=== PATIENT | male | born 1960 | race American Indian/Alaskan Native ===

== ENCOUNTER 2016-12-26 09:18 | Emergency (ER) | payer SELFPAY ==
[2016-12-26 09:36] VITALS: BP 119/87
--- NOTE | 2016-12-26 11:22 | Emergency Department Report ---
- General Chief Complaint: Upper Respiratory Infection Stated Complaint: FLU SYMPTOMS Time Seen by Provider: 12/26/16 10:58 Source: patient Mode of arrival: Ambulatory Limitations: No Limitations - History of Present Illness Initial Comments: Patient complains of head and chest congestion, nonproductive cough, stuffy and runny nose, headaches x 2.5 days. States it began with a lot of drainage in the back of his throat and the cough started last night which caused him to choke and feel short of breath. Denies nausea, vomiting, fever, spitting or coughing up blood, chest pain, weakness, tingling, or numbness. States no relief with OTC meds. Patient states feels like symptom is worse in within the last 12 hour - Related Data Previous Rx's Medication Instructions Recorded Last Taken Type Amoxicillin [Trimox CAP] 500 mg PO Q8H #21 capsule 10/29/13 Unknown Rx Ibuprofen [Motrin] 800 mg PO TID PRN #14 tablet 10/29/13 Unknown Rx Prednisone 20 mg PO QDAY #5 tablet 10/29/13 Unknown Rx HYDROcodone/APAP 5-325 [[place] 1 each PO Q6HR PRN #20 tablet 04/20/14 Unknown Rx 5/325 mg] Azithromycin [Zithromax Z-MARILYNN] 250 mg PO DAILY #6 tablet 05/23/14 Unknown Rx Naproxen [Naprosyn] 500 mg PO Q12H #60 tablet 05/23/14 Unknown Rx Promethazine Dm [Phenergan DM 5 ml PO Q6H PRN #120 ml 05/23/14 Unknown Rx 6.25-15 mg/5 ml] traMADol [Ultram 50 MG tab] 50 mg PO Q6HR PRN #20 tablet 05/23/14 Unknown Rx Cyclobenzaprine [Flexeril 10 MG 10 mg PO TID PRN #30 tablet 08/24/15 Unknown Rx TAB] Ibuprofen [Motrin] 800 mg PO Q8HR #40 tablet 08/24/15 Unknown Rx traMADol [Ultram 50 MG tab] 50 mg PO Q6HR PRN #30 tablet 08/24/15 Unknown Rx ALBUTEROL Inhaler [ProAir HFA 1 puff IH Q4H PRN #1 inha 12/26/16 Unknown Rx Inhaler] Amoxicillin/K Clav Tab [Augmentin 1 tab PO Q12HR #14 tab 12/26/16 Unknown Rx 875 mg] Fluticasone [Flonase] 1 spray NS QDAY #1 bottle 12/26/16 Unknown Rx Loratadine/Pseudoephedrine 1 tab PO Q12H #30 tablet 12/26/16 Unknown Rx [Claritin-D 12HR] Allergies Allergy/AdvReac Type Severity Reaction Status Date / Time No Known Allergies Allergy Verified 04/20/14 17:33 ED Review of Systems ROS: Stated complaint: FLU SYMPTOMS Other details as noted in HPI Comment: All other systems reviewed and negative ED Past Medical Hx - Past Medical History Additional medical history: high cholesterol - Surgical History Past Surgical History?: No - Social History Smoking Status: Current Every Day Smoker Substance Use Type: Alcohol - Medications Home Medications: Home Medications Medication Instructions Recorded Confirmed Last Taken Type Amoxicillin [Trimox CAP] 500 mg PO Q8H #21 capsule 10/29/13 Unknown Rx Ibuprofen [Motrin] 800 mg PO TID PRN #14 tablet 10/29/13 Unknown Rx Prednisone 20 mg PO QDAY #5 tablet 10/29/13 Unknown Rx HYDROcodone/APAP 5-325 [[place] 1 each PO Q6HR PRN #20 tablet 04/20/14 Unknown Rx 5/325 mg] Azithromycin [Zithromax Z-MARILYNN] 250 mg PO DAILY #6 tablet 05/23/14 Unknown Rx Naproxen [Naprosyn] 500 mg PO Q12H #60 tablet 05/23/14 Unknown Rx Promethazine Dm [Phenergan DM 5 ml PO Q6H PRN #120 ml 05/23/14 Unknown Rx 6.25-15 mg/5 ml] traMADol [Ultram 50 MG tab] 50 mg PO Q6HR PRN #20 tablet 05/23/14 Unknown Rx Cyclobenzaprine [Flexeril 10 MG 10 mg PO TID PRN #30 tablet 08/24/15 Unknown Rx TAB] Ibuprofen [Motrin] 800 mg PO Q8HR #40 tablet 08/24/15 Unknown Rx traMADol [Ultram 50 MG tab] 50 mg PO Q6HR PRN #30 tablet 08/24/15 Unknown Rx ALBUTEROL Inhaler [ProAir HFA 1 puff IH Q4H PRN #1 inha 12/26/16 Unknown Rx Inhaler] Amoxicillin/K Clav Tab [Augmentin 1 tab PO Q12HR #14 tab 12/26/16 Unknown Rx 875 mg] Fluticasone [Flonase] 1 spray NS QDAY #1 bottle 12/26/16 Unknown Rx Loratadine/Pseudoephedrine 1 tab PO Q12H #30 tablet 12/26/16 Unknown Rx [Claritin-D 12HR] ED Physical Exam - General Limitations: No Limitations General appearance: alert, in no apparent distress - Head Head exam: Present: atraumatic, normocephalic, normal inspection, other (+ frontal sinus pain.) - Eye Eye exam: Present: normal appearance, PERRL, EOMI. Absent: scleral icterus, conjunctival injection, periorbital swelling, periorbital tenderness - ENT ENT exam: Present: normal exam, mucous membranes moist, TM's normal bilaterally , normal external ear exam. Absent: normal orophraynx (PND) - Neck Neck exam: Present: normal inspection, full ROM. Absent: tenderness, meningismus, lymphadenopathy - Respiratory Respiratory exam: Present: normal lung sounds bilaterally. Absent: respiratory distress, wheezes, rales, rhonchi, stridor, chest wall tenderness, accessory muscle use, decreased breath sounds, prolonged expiratory - Cardiovascular Cardiovascular Exam: Present: regular rate, normal rhythm - GI/Abdominal GI/Abdominal exam: Present: soft, normal bowel sounds. Absent: distended, tenderness, guarding - Extremities Exam Extremities exam: Present: normal inspection, full ROM, tenderness. Absent: normal capillary refill, pedal edema, joint swelling, calf tenderness - Back Exam Back exam: Present: normal inspection, full ROM. Absent: tenderness, CVA tenderness (R), CVA tenderness (L) - Neurological Exam Neurological exam: Present: alert, oriented X3, normal gait. Absent: motor sensory deficit, reflexes normal - Psychiatric Psychiatric exam: Present: normal affect, normal mood - Skin Skin exam: Present: warm, dry, intact, normal color. Absent: rash, cyanosis, diaphoretic, erythema, petechiae, pallor, abrasion ED Course Vital Signs 12/26/16 09:34 Temperature 98.1 F Pulse Rate 83 Respiratory 18 Rate Blood Pressure 119/87 O2 Sat by Pulse 97 Oximetry Critical care attestation.: If time is entered above; I have spent that time in minutes in the direct care of this critically ill patient, excluding procedure time. ED Disposition Clinical Impression: PND (post-nasal drip) Acute sinusitis Qualifiers: Sinusitis location: frontal Recurrence: not specified as recurrent Qualified Code(s): J01.10 - Acute frontal sinusitis, unspecified Disposition: DISCHARGED TO HOME OR SELFCARE Is pt being admited?: No Does the pt Need Aspirin: No Condition: Stable Instructions: Sinusitis (ED) Prescriptions: Amoxicillin/K Clav Tab [Augmentin 875 mg] 1 tab PO Q12HR #14 tab Loratadine/Pseudoephedrine [Claritin-D 12HR] 1 tab PO Q12H #30 tablet Fluticasone [Flonase] 1 spray NS QDAY #1 bottle ALBUTEROL Inhaler [ProAir HFA Inhaler] 1 puff IH Q4H PRN #1 inha PRN Reason: Shortness Of Breath Referrals: [facility] [Outside] - 2-3 Days PRIMARY CARE, [Primary Care Provider] - 2-3 Days Forms: Work/School Release Form(ED)
== END 2016-12-26 11:37 | disposition home or self-care (01) ==
LOC: ED 09:18
DX: J01.10 Acute frontal sinusitis, unspecified (principal); R09.82 Postnasal drip; E78.00 Pure hypercholesterolemia, unspecified; F17.200 Nicotine dependence, unspecified, uncomplicated
CPT/HCPCS: 99282

== ENCOUNTER 2017-05-08 13:47 | Emergency (ER) | payer SELFPAY ==
[2017-05-08 15:01] VITALS: BP 137/94
--- NOTE | 2017-05-08 15:39 | Emergency Department Report ---
Entered by REJI MCCRARY, acting as scribe for BRONSON GRAHAM NP. ED Lower Extremity HPI - General Chief Complaint: Skin/Abscess/Foreign Body Stated Complaint: LEFT LEG INSECT BITE Time Seen by Provider: 05/08/17 14:55 Source: patient Mode of arrival: Ambulatory Limitations: No Limitations - History of Present Illness Initial Comments: 56 y/o male c/o possible insect or animal to the left anterior thigh occurring yesterday morning, no aggravating or alleviating factors, constant since onset , burning in quality, 4/10 in severity. Associated erythema, swelling, and pain of the area but denies fever, nausea, vomiting, and chills. Patient states he was bitten while lying in bed. MD Complaint: thigh injury, leg injury (Left thigh) -: Gradual, days(s) (1) Injury: Thigh: Left Type of Injury: other (bite) Place: home Severity: moderate Severity scale (0 -10): 4 Improves With: nothing Worsens With: nothing Context: other (laying in bed) Associated Symptoms: swelling, ambulatory. denies: numbness, tingling, unable to bear weight - Related Data Previous Rx's Medication Instructions Recorded Last Taken Type ALBUTEROL Inhaler [ProAir HFA 1 puff IH Q4H PRN #1 inha 12/26/16 Unknown Rx Inhaler] Fluticasone [Flonase] 1 spray NS QDAY #1 bottle 12/26/16 Unknown Rx Loratadine/Pseudoephedrine 1 tab PO Q12H #30 tablet 12/26/16 Unknown Rx [Claritin-D 12HR] Cephalexin [Keflex] 500 mg PO Q6HR #40 capsule 05/08/17 Unknown Rx Ibuprofen [Motrin] 600 mg PO Q8H PRN #15 tablet 05/08/17 Unknown Rx Sulfamethoxazole/Trimethoprim 1 each PO BID #20 tablet 05/08/17 Unknown Rx [Bactrim DS TAB] hydrOXYzine PAMOATE [Vistaril] 25 mg PO Q6HR PRN #12 capsule 05/08/17 Unknown Rx traMADol [Ultram] 50 mg PO Q6HR PRN #12 tablet 05/08/17 Unknown Rx Allergies Allergy/AdvReac Type Severity Reaction Status Date / Time No Known Allergies Allergy Verified 05/08/17 15:01 ED Review of Systems Comment: All other systems reviewed and negative Constitutional: denies: chills, fever, malaise Eyes: denies: eye pain, eye discharge ENT: denies: ear pain, throat pain Respiratory: denies: cough, shortness of breath Cardiovascular: denies: chest pain Gastrointestinal: denies: abdominal pain, nausea, vomiting Genitourinary: denies: dysuria, hematuria Musculoskeletal: denies: back pain Skin: other (insect or animal bite to the left anterior thigh). denies: rash Neurological: denies: headache, numbness Psychiatric: denies: anxiety, depression ED Past Medical Hx - Past Medical History Additional medical history: high cholesterol - Social History Smoking Status: Current Every Day Smoker Substance Use Type: Alcohol - Medications Home Medications: Home Medications Medication Instructions Recorded Confirmed Last Taken Type ALBUTEROL Inhaler [ProAir HFA 1 puff IH Q4H PRN #1 inha 12/26/16 Unknown Rx Inhaler] Fluticasone [Flonase] 1 spray NS QDAY #1 bottle 12/26/16 Unknown Rx Loratadine/Pseudoephedrine 1 tab PO Q12H #30 tablet 12/26/16 Unknown Rx [Claritin-D 12HR] Cephalexin [Keflex] 500 mg PO Q6HR #40 capsule 05/08/17 Unknown Rx Ibuprofen [Motrin] 600 mg PO Q8H PRN #15 tablet 05/08/17 Unknown Rx Sulfamethoxazole/Trimethoprim 1 each PO BID #20 tablet 05/08/17 Unknown Rx [Bactrim DS TAB] hydrOXYzine PAMOATE [Vistaril] 25 mg PO Q6HR PRN #12 capsule 05/08/17 Unknown Rx traMADol [Ultram] 50 mg PO Q6HR PRN #12 tablet 05/08/17 Unknown Rx ED Physical Exam - General Limitations: No Limitations General appearance: alert, in no apparent distress - Head Head exam: Present: atraumatic, normocephalic - Eye Eye exam: Present: normal appearance, PERRL, EOMI Pupils: Present: normal accommodation - ENT ENT exam: Present: normal exam, normal orophraynx, mucous membranes moist, normal external ear exam - Neck Neck exam: Present: normal inspection, full ROM. Absent: tenderness, meningismus - Respiratory Respiratory exam: Present: normal lung sounds bilaterally. Absent: respiratory distress, wheezes, decreased breath sounds - Cardiovascular Cardiovascular Exam: Present: regular rate, normal rhythm, normal heart sounds. Absent: rubs, gallop - GI/Abdominal GI/Abdominal exam: Present: soft, normal bowel sounds. Absent: distended, tenderness - Extremities Exam Extremities exam: Present: full ROM, normal capillary refill, other (1 cm area of erythema to the left anterior thigh surrounded by a 4 cm area of advisor to command in combat erythema. No palpable abscess, no warmth). Absent: tenderness, pedal edema, joint swelling, calf tenderness - Back Exam Back exam: Present: normal inspection, full ROM. Absent: tenderness, CVA tenderness (R) - Neurological Exam Neurological exam: Present: alert, oriented X3 - Psychiatric Psychiatric exam: Present: normal affect, normal mood. Absent: depressed - Skin Skin exam: Present: warm, intact, other (1 cm area of erythema to the left anterior thigh surrounded by 4 cm area of advisor to command in combat erythema. No palpable abscess , no warmth). Absent: rash ED Course Vital Signs 05/08/17 14:57 Temperature 98.2 F Pulse Rate 75 Respiratory 17 Rate Blood Pressure 137/94 O2 Sat by Pulse 100 Oximetry - Reevaluation(s) Reevaluation #1: 05/08/17 15:22 PT aware of dx and plan of care. PT has no questions at this time. - Pulse Oximetry Interpretation Digit-Finger Initial Pulse Oximetry Readin Actions Taken: none ED Lower Extremity MDM - Differential Diagnosis local reaction vs cellulitis Critical Care Time: No ED Disposition Clinical Impression: Insect bite Qualifiers: Encounter type: initial encounter Qualified Code(s): W57.XXXA - Bitten or stung by nonvenomous insect and other nonvenomous arthropods, initial encounter Cellulitis Qualifiers: Site of cellulitis: extremity Site of cellulitis of extremity: lower extremity Laterality: left Qualified Code(s): L03.116 - Cellulitis of left lower limb Disposition: DC-01 TO HOME OR SELFCARE Is pt being admited?: No Does the pt Need Aspirin: No Condition: Stable Instructions: Insect Bite or Sting (ED), Cellulitis (ED) Additional Instructions: No driving or ETOH after taking Ultram or Vistaril Do not take Ultram and Vistaril at the same time return to ED if worsening or concerns Prescriptions: Cephalexin [Keflex] 500 mg PO Q6HR #40 capsule hydrOXYzine PAMOATE [Vistaril] 25 mg PO Q6HR PRN #12 capsule PRN Reason: Itching Ibuprofen [Motrin] 600 mg PO Q8H PRN #15 tablet PRN Reason: Pain Sulfamethoxazole/Trimethoprim [Bactrim DS TAB] 1 each PO BID #20 tablet traMADol [Ultram] 50 mg PO Q6HR PRN #12 tablet PRN Reason: Pain Referrals: NACHO BELL MD [Staff Physician] - 3-5 Days [facility] [Outside] - 3-5 Days [facility] [Outside] - 3-5 Days Forms: Work/School Release Form(ED) Time of Disposition: 15:38 This documentation as recorded by the DEMETRA [email or web address] MATHEW,accurately reflects the service I personally performed and the decisions made by SANTOS christopher TRACY M, INSULATION BOARD HEAD SAW OPERATOR.
== END 2017-05-08 16:00 | disposition home or self-care (01) ==
LOC: ED 13:47
DX: L03.116 Cellulitis of left lower limb (principal); E78.00 Pure hypercholesterolemia, unspecified; F17.200 Nicotine dependence, unspecified, uncomplicated; W57.XXXA Bitten or stung by nonvenomous insect and other nonvenomous arthropods, initial encounter; Y93.89 Activity, other specified; Y99.8 Other external cause status; Y92.009 Unspecified place in unspecified non-institutional (private) residence as the place of occurrence of the external cause
CPT/HCPCS: 99282

== ENCOUNTER 2017-06-16 19:26 | Emergency (ER) | payer SELFPAY ==
[2017-06-16 19:47] VITALS: BP 136/92
[2017-06-16] MEDS ORDERED: DECADRON IM ONE (22:22)
--- NOTE | 2017-06-16 22:28 | Emergency Department Report ---
- General Chief Complaint: Sore Throat Stated Complaint: SORE THROAT/EARACHE Time Seen by Provider: 06/16/17 21:55 Source: patient Mode of arrival: Ambulatory Limitations: No Limitations - History of Present Illness Initial Comments: Patient comes into the ER today with complaints of nasal congestion and sore throat. Patient states he has been congested in his sinuses for the past 4-5 days but his throat started hurting yesterday. Patient is concerned as why he is getting this and as if it might be related to his smoking. Patient does state that many of his family members have been having a cold lately. Patient states it throat does hurt to swallow. Patient denies any fever, body aches, chills, abdominal pain, vomiting. Patient has not taken anything over-the- counter for his symptoms. MD Complaint: sore throat, nasal congestion, sinus pain - Related Data Previous Rx's Medication Instructions Recorded Last Taken Type ALBUTEROL Inhaler [ProAir HFA 1 puff IH Q4H PRN #1 inha 12/26/16 Unknown Rx Inhaler] Fluticasone [Flonase] 1 spray NS QDAY #1 bottle 12/26/16 Unknown Rx Loratadine/Pseudoephedrine 1 tab PO Q12H #30 tablet 12/26/16 Unknown Rx [Claritin-D 12HR] Cephalexin [Keflex] 500 mg PO Q6HR #40 capsule 05/08/17 Unknown Rx Ibuprofen [Motrin] 600 mg PO Q8H PRN #15 tablet 05/08/17 Unknown Rx Sulfamethoxazole/Trimethoprim 1 each PO BID #20 tablet 05/08/17 Unknown Rx [Bactrim DS TAB] hydrOXYzine PAMOATE [Vistaril] 25 mg PO Q6HR PRN #12 capsule 05/08/17 Unknown Rx traMADol [Ultram] 50 mg PO Q6HR PRN #12 tablet 05/08/17 Unknown Rx Amoxicillin 1,000 mg PO BID #40 capsule 06/16/17 Unknown Rx Allergies Allergy/AdvReac Type Severity Reaction Status Date / Time No Known Allergies Allergy Verified 05/08/17 15:01 ED Review of Systems ROS: Stated complaint: SORE THROAT/EARACHE Other details as noted in HPI Constitutional: denies: chills, fever Eyes: denies: eye pain, eye discharge, vision change ENT: throat pain, congestion. denies: ear pain, dental pain, hearing loss, epistaxis Respiratory: denies: cough, shortness of breath, wheezing Cardiovascular: denies: chest pain, palpitations Endocrine: no symptoms reported Gastrointestinal: denies: abdominal pain, nausea, diarrhea Genitourinary: denies: urgency, dysuria Musculoskeletal: denies: back pain, joint swelling, arthralgia Skin: denies: rash, lesions Neurological: denies: headache, weakness, paresthesias Psychiatric: denies: anxiety, depression Hematological/Lymphatic: denies: easy bleeding, easy bruising ED Past Medical Hx - Past Medical History Previous Medical History?: Yes Additional medical history: high cholesterol - Surgical History Past Surgical History?: No - Social History Smoking Status: Current Every Day Smoker Substance Use Type: Alcohol - Medications Home Medications: Home Medications Medication Instructions Recorded Confirmed Last Taken Type ALBUTEROL Inhaler [ProAir HFA 1 puff IH Q4H PRN #1 inha 12/26/16 Unknown Rx Inhaler] Fluticasone [Flonase] 1 spray NS QDAY #1 bottle 12/26/16 Unknown Rx Loratadine/Pseudoephedrine 1 tab PO Q12H #30 tablet 12/26/16 Unknown Rx [Claritin-D 12HR] Cephalexin [Keflex] 500 mg PO Q6HR #40 capsule 05/08/17 Unknown Rx Ibuprofen [Motrin] 600 mg PO Q8H PRN #15 tablet 05/08/17 Unknown Rx Sulfamethoxazole/Trimethoprim 1 each PO BID #20 tablet 05/08/17 Unknown Rx [Bactrim DS TAB] hydrOXYzine PAMOATE [Vistaril] 25 mg PO Q6HR PRN #12 capsule 05/08/17 Unknown Rx traMADol [Ultram] 50 mg PO Q6HR PRN #12 tablet 05/08/17 Unknown Rx Amoxicillin 1,000 mg PO BID #40 capsule 06/16/17 Unknown Rx ED Physical Exam - General Limitations: No Limitations General appearance: alert, in no apparent distress - Head Head exam: Present: atraumatic, normocephalic - Eye Eye exam: Present: normal appearance, PERRL, EOMI. Absent: periorbital swelling , periorbital tenderness - ENT ENT exam: Present: mucous membranes moist, TM's normal bilaterally, normal external ear exam, other (bilateral nasal mucosa redness and swelling, bilateral posterior pharynx erythematous and tonsillar swelling without exudates.) - Neck Neck exam: Present: normal inspection, full ROM. Absent: tenderness, meningismus, lymphadenopathy - Respiratory Respiratory exam: Present: normal lung sounds bilaterally. Absent: respiratory distress, wheezes, rales, rhonchi - Cardiovascular Cardiovascular Exam: Present: regular rate, normal rhythm, normal heart sounds. Absent: systolic murmur, diastolic murmur, rubs, gallop - GI/Abdominal GI/Abdominal exam: Present: soft, normal bowel sounds - Rectal Rectal exam: Present: deferred - Extremities Exam Extremities exam: Present: normal inspection - Back Exam Back exam: Present: normal inspection - Neurological Exam Neurological exam: Present: alert, oriented X3 - Psychiatric Psychiatric exam: Present: normal affect, normal mood - Skin Skin exam: Present: warm, dry, intact, normal color. Absent: rash ED Course Vital Signs 06/16/17 19:42 Temperature 98.5 F Pulse Rate 88 Respiratory 16 Rate Blood Pressure 136/92 O2 Sat by Pulse 95 Oximetry ED Medical Decision Making - Lab Data Rapid strep test negative in the ER. - Medical Decision Making Patient is nontoxic and hemodynamically stable. Lab results reviewed and discussed the patient room. Patient complaining a lot about sinus pressure and throat swelling and was given Decadron 10 mg IM here in the ER to expedite recovery time. I will continue patient on antibiotics appropriately and patient is to follow up with primary care to ensure resolution of illness. Patient is in agreement with treatment plan patient is stable for discharge. Critical care attestation.: If time is entered above; I have spent that time in minutes in the direct care of this critically ill patient, excluding procedure time. ED Disposition Clinical Impression: Pharyngitis, Sinusitis Disposition: -01 TO HOME OR SELFCARE Is pt being admited?: No Does the pt Need Aspirin: No Condition: Good Instructions: Pharyngitis (ED), Sinusitis (ED) Prescriptions: Amoxicillin 1,000 mg PO BID #40 capsule Referrals: PRIMARY CARE, [Primary Care Provider] - 3-5 Days Time of Disposition: 22:28
== END 2017-06-16 22:37 | disposition home or self-care (01) ==
LOC: ED 19:26
DX: J32.9 Chronic sinusitis, unspecified (principal); J02.9 Acute pharyngitis, unspecified; F17.200 Nicotine dependence, unspecified, uncomplicated; E78.00 Pure hypercholesterolemia, unspecified
CPT/HCPCS: 87116; 87430; 96372; 99282; J1100

== ENCOUNTER 2017-07-02 13:44 | Emergency (ER) | payer SELFPAY ==
--- NOTE | 2017-07-02 15:50 | Emergency Department Report ---
Chief Complaint: Extremity Injury, Lower Stated Complaint: RIGHT KNEE PAIN Time Seen by Provider: 07/02/17 15:48 - HPI History of Present Illness: PT c/o R knee pain. PT states he injures his knee three years ago. PT states he re-injured it 3 weeks ago. PT states he slipped on and his entire leg hurts. - ROS Review of Systems: + R knee pain + R knee swelling - Exam Physical Exam: pt looks well, non toxic. pt ambulatory in triage MSE screening note: Focused history and physical exam performed. Due to findings the following was ordered: xr ED Disposition for MSE Condition: Stable
[2017-07-02 15:51] VITALS: BP 136/93
--- NOTE | 2017-07-02 17:33 | XRay Report ---
FINAL REPORT EXAM: XR KNEE 3V RT HISTORY: R knee pain TECHNIQUE: Right knee three views 3 images PRIORS: None. FINDINGS: Bone mineralization appears within normal limits. No acute fracture or subluxation is identified. Possible small effusion. IMPRESSION: 1. No acute osseous abnormality is identified. 2. Possible small right knee effusion.
[2017-07-02] MEDS ORDERED: MOTRIN PO ONE (17:37)
--- NOTE | 2017-07-02 18:26 | Emergency Department Report ---
Entered by TUCKER JACQUES, acting as scribe for WILDER AGUILLON NP. ED Lower Extremity HPI - General Chief Complaint: Extremity Injury, Lower Stated Complaint: RIGHT KNEE PAIN Time Seen by Provider: 07/02/17 15:48 Source: patient Mode of arrival: Ambulatory Limitations: No Limitations - History of Present Illness Initial Comments: This is a 56 y/o male, nontoxic, well nourished in appearance, no acute signs of distress with a PMHx of high cholesterol presents with c/o right knee pain that began 3 weeks ago. Patient stated 4 days ago he fell again and developed worsening of pain in the knee pain. Rates pain a 10/10 in severity, which he describes as aching in quality. Aggravated with movement and weight bearing, and alleviated with immobilization. Patient states he injured his knee 3 years ago, and he received an X-ray was which showed normal findings. Notes that he landed on his right knee 4 days ago again secondary to a slip and fall that exacerbated his pain even more. Patient reports his pain radiates throughout his entire right leg. Patient also c/o of calf pain and is worried about a DVT. Patient stated his sister has been dx with DVT and he is concerned and wants to be evaluated for DVT. Reports associated right knee swelling, but he denies numbness and tingling and numbness tingling chest pain, shortness of breath, nausea, vomiting, stiff neck or headache. Patient states his daughters was diagnosed with DVT and he requests an US of right leg to rule out a blood clot. NKDA. SALVADOR Complaint: knee injury (right) Onset/Timin -: week(s) Injury: Knee: Right Type of Injury: unknown Place: home Severity: severe Severity scale (0 -10): 10 Improves With: immobilization Worsens With: weight bearing, movement Associated Symptoms: swelling (right knee), able to partially bear weight, ambulatory. denies: snap/pop sensation, numbness, tingling - Related Data Previous Rx's Medication Instructions Recorded Last Taken Type ALBUTEROL Inhaler [ProAir HFA 1 puff IH Q4H PRN #1 inha 12/26/16 Unknown Rx Inhaler] Fluticasone [Flonase] 1 spray NS QDAY #1 bottle 12/26/16 Unknown Rx Loratadine/Pseudoephedrine 1 tab PO Q12H #30 tablet 12/26/16 Unknown Rx [Claritin-D 12HR] Cephalexin [Keflex] 500 mg PO Q6HR #40 capsule 05/08/17 Unknown Rx Ibuprofen [Motrin] 600 mg PO Q8H PRN #15 tablet 05/08/17 Unknown Rx Sulfamethoxazole/Trimethoprim 1 each PO BID #20 tablet 05/08/17 Unknown Rx [Bactrim DS TAB] hydrOXYzine PAMOATE [Vistaril] 25 mg PO Q6HR PRN #12 capsule 05/08/17 Unknown Rx traMADol [Ultram] 50 mg PO Q6HR PRN #12 tablet 05/08/17 Unknown Rx Amoxicillin 1,000 mg PO BID #40 capsule 06/16/17 Unknown Rx Ibuprofen [Motrin 600 MG tab] 600 mg PO Q8H PRN #30 tablet 07/02/17 Unknown Rx predniSONE [Deltasone] 20 mg PO BID #10 tab 07/02/17 Unknown Rx Allergies Allergy/AdvReac Type Severity Reaction Status Date / Time No Known Allergies Allergy Verified 05/08/17 15:01 ED Review of Systems Comment: All other systems reviewed and negative Constitutional: denies: chills, fever Eyes: denies: eye pain, eye discharge, vision change ENT: denies: ear pain, throat pain Respiratory: denies: cough, orthopnea, shortness of breath, SOB with exertion, SOB at rest, stridor, wheezing Cardiovascular: denies: chest pain, palpitations Endocrine: no symptoms reported Gastrointestinal: denies: abdominal pain, nausea, vomiting, diarrhea Genitourinary: denies: urgency, dysuria Musculoskeletal: joint swelling (right knee), arthralgia (right knee pain). denies: back pain, myalgia Skin: denies: rash, lesions Neurological: denies: headache, weakness, numbness, paresthesias, confusion, vertigo Psychiatric: denies: anxiety, depression Hematological/Lymphatic: denies: easy bleeding, easy bruising ED Past Medical Hx - Past Medical History Previous Medical History?: Yes Additional medical history: high cholesterol - Surgical History Past Surgical History?: No - Social History Smoking Status: Current Every Day Smoker Substance Use Type: Alcohol - Medications Home Medications: Home Medications Medication Instructions Recorded Confirmed Last Taken Type ALBUTEROL Inhaler [ProAir HFA 1 puff IH Q4H PRN #1 inha 12/26/16 Unknown Rx Inhaler] Fluticasone [Flonase] 1 spray NS QDAY #1 bottle 12/26/16 Unknown Rx Loratadine/Pseudoephedrine 1 tab PO Q12H #30 tablet 12/26/16 Unknown Rx [Claritin-D 12HR] Cephalexin [Keflex] 500 mg PO Q6HR #40 capsule 05/08/17 Unknown Rx Ibuprofen [Motrin] 600 mg PO Q8H PRN #15 tablet 05/08/17 Unknown Rx Sulfamethoxazole/Trimethoprim 1 each PO BID #20 tablet 05/08/17 Unknown Rx [Bactrim DS TAB] hydrOXYzine PAMOATE [Vistaril] 25 mg PO Q6HR PRN #12 capsule 05/08/17 Unknown Rx traMADol [Ultram] 50 mg PO Q6HR PRN #12 tablet 05/08/17 Unknown Rx Amoxicillin 1,000 mg PO BID #40 capsule 06/16/17 Unknown Rx Ibuprofen [Motrin 600 MG tab] 600 mg PO Q8H PRN #30 tablet 07/02/17 Unknown Rx predniSONE [Deltasone] 20 mg PO BID #10 tab 07/02/17 Unknown Rx ED Physical Exam - General Limitations: No Limitations General appearance: alert, in no apparent distress - Head Head exam: Present: atraumatic, normocephalic - Eye Eye exam: Present: normal appearance, PERRL, EOMI. Absent: scleral icterus, conjunctival injection, nystagmus, periorbital swelling, periorbital tenderness - ENT ENT exam: Present: normal exam, normal orophraynx, mucous membranes moist, TM's normal bilaterally, normal external ear exam - Neck Neck exam: Present: normal inspection, full ROM. Absent: tenderness, meningismus, lymphadenopathy, thyromegaly - Respiratory Respiratory exam: Present: normal lung sounds bilaterally. Absent: respiratory distress, wheezes, rales, rhonchi, stridor, chest wall tenderness, accessory muscle use, decreased breath sounds - Cardiovascular Cardiovascular Exam: Present: regular rate, normal rhythm, normal heart sounds. Absent: bradycardia, tachycardia, irregular rhythm, systolic murmur, diastolic murmur, rubs, gallop - GI/Abdominal GI/Abdominal exam: Present: soft, normal bowel sounds. Absent: distended - Rectal Rectal exam: Present: deferred - Extremities Exam Extremities exam: Present: full ROM (painful, but full ROM to right knee), normal capillary refill, joint swelling (right knee). Absent: tenderness, pedal edema, calf tenderness - Expanded Lower Extremity Exam Right Hip exam: Present: normal inspection, full ROM, external rotation, internal rotation, pelvic stability. Absent: tenderness, swelling, abrasion, laceration , ecchymosis, deformity, crepidus, dislocation, erythema, shortening Upper Leg exam: Present: normal inspection, full ROM. Absent: tenderness, swelling, abrasion, laceration, ecchymosis, deformity, crepidus, dislocation, erythema Knee exam: Present: full ROM (painful, but full ROM to right knee), swelling, ecchymosis (lateral right knee), effusion, full knee extension. Absent: normal inspection, tenderness, abrasion, laceration, deformity, crepidus, dislocation, erythema, pain w/ pronation/supination, posterior draw sign, pain/laxity with valgus, pain/laxity with varus Lower Leg exam: Present: normal inspection, full ROM. Absent: tenderness, swelling, abrasion, laceration, ecchymosis, deformity, crepidus, dislocation, erythema, palpable cord, Elsie's sign Ankle exam: Present: normal inspection, full ROM. Absent: tenderness, swelling , abrasion, laceration, ecchymosis, deformity, crepidus, dislocation, erythema, anterior draw sign Foot/Toe exam: Present: normal inspection, full ROM. Absent: tenderness, swelling, abrasion, laceration, ecchymosis, deformity, crepidus, dislocation, erythema, amputation, puncture wound, foreign body, calcaneal tenderness, tenderness at base of 5th metatarsal, nail avulsion, subungual hematoma Neuro vascular tendon exam: Present: no vascular compromise. Absent: pulse deficit, abnormal cap refill, motor deficit, sensory deficit, tendon deficit, extremity cold to touch, pallor, abnormal 2-point discrimination, decreased fine /light touch, foot drop, peroneal nerve deficit, significant pain with passive ROM of distal joint Gait: Positive: observed and limited by pain - Back Exam Back exam: Present: normal inspection, full ROM. Absent: tenderness, CVA tenderness (R), CVA tenderness (L), muscle spasm, paraspinal tenderness, vertebral tenderness, rash noted - Neurological Exam Neurological exam: Present: alert, oriented X3, CN II-XII intact, normal gait ( limited due to right knee pain), reflexes normal. Absent: abnormal gait, motor sensory deficit - Psychiatric Psychiatric exam: Present: normal affect, normal mood - Skin Skin exam: Present: warm, dry, intact. Absent: rash ED Course Vital Signs 07/02/17 15:48 Temperature 98.5 F Pulse Rate 82 Respiratory 16 Rate Blood Pressure 136/93 O2 Sat by Pulse 98 Oximetry - Reevaluation(s) Reevaluation #1: 07/02/17 17:15 Patient is speaking in full sentences with no signs of distress noted. ED Lower Extremity MDM - Medical Decision Making ED course; this 56-year-old male that presents with right knee contusion 1- patient was examined myself. An x-ray has been obtained of the left knee as well as Doppler ultrasound of lower extremity to rule out DVT. Patient requested for a Doppler ultrasound to rule out DVT due to patient sister being diagnosed with DVT and patient. Calf tenderness. Pelvic examination there was no Homans sign or any calf tenderness or swelling. Patient was notified of x- ray and ultrasound findings with no further pus noted by patient. 2- patient was instructed to rest, elevate, and ice extremity. 3- patient received Solu-Medrol 125 mg IM in the ED as well prednisone at discharge. Patient also received ibuprofen at discharge and ED. 4- patient was referred to follow up with Dr. Mason in 3-5 days or if symptoms worsen or continue return to emergency room as soon as possible. 5- patient received a knee immobilizer and crutches at discharge. ED Disposition Clinical Impression: Knee contusion Qualifiers: Encounter type: initial encounter Laterality: right Qualified Code(s): S80.01XA - Contusion of right knee, initial encounter Disposition: - TO HOME OR SELFCARE Is pt being admited?: No Does the pt Need Aspirin: No Condition: Stable Instructions: Ibuprofen (By mouth), Prednisone (By mouth), Contusion in Adults (ED), Crutch Instructions (ED), Knee Immobilizer (ED) Additional Instructions: follow up with Dr. Mason in 3-5 days or if symptoms worsen or continue return to emergency room as soon as possible. Prescriptions: Ibuprofen [Motrin 600 MG tab] 600 mg PO Q8H PRN #30 tablet PRN Reason: Pain predniSONE [Deltasone] 20 mg PO BID #10 tab Referrals: PRIMARY CARE, [Primary Care Provider] - 3-5 Days ARCADIO ISAAC MD [Staff Physician] - 3-5 Days OLIVER MASON MD [Staff Physician] - 3-5 Days [facility] [Outside] - 3-5 Days [facility] [Outside] - 3-5 Days This documentation as recorded by the GEORGIE youssef JASMINE,accurately reflects the service I personally performed and the decisions made by me,WILDER AGUILLON, JON.
--- NOTE | 2017-07-03 11:14 | Vascular Lab Report ---
Right Lower Extremity Venous Duplex Study: Reason for Exam: Pain of the right lower extremity. Comments on the Right: All veins visualized are freely compressible without evidence of internal echogenicity. Flow is spontaneous and phasic throughout. No evidence of acute or chronic thrombus is seen in any of the vessels visualized. Comments on the Left: A limited duplex study was done of the proximal veins of the left lower extremity. All veins visualized are freely compressible without evidence of internal echogenicity. Flow is spontaneous and phasic throughout. No evidence of acute or chronic thrombus is seen in any of the vessels visualized. Impression: No evidence of acute or chronic deep venous thrombosis in the right lower extremity.
== END 2017-07-02 18:04 | disposition home or self-care (01) ==
LOC: ED 13:44
DX: S80.01XA Contusion of right knee, initial encounter (principal); E78.00 Pure hypercholesterolemia, unspecified; F17.200 Nicotine dependence, unspecified, uncomplicated; X58.XXXA Exposure to other specified factors, initial encounter; Y93.9 Activity, unspecified; Y92.9 Unspecified place or not applicable; Y99.9 Unspecified external cause status
CPT/HCPCS: 29505; 73562; 93971; 96372; 99283; J2930

== ENCOUNTER 2017-09-02 11:33 | Emergency (ER) | payer SELFPAY ==
[2017-09-02 12:18] VITALS: BP 120/86
--- NOTE | 2017-09-02 14:53 | Emergency Department Report ---
<CRISTIANE HERNANDEZ T - Last Filed: 09/02/17 18:02> ED Male HPI - General Chief complaint: Pain General Stated complaint: TESTICAL PAIN Time Seen by Provider: 09/02/17 14:28 Source: patient Mode of arrival: Ambulatory Limitations: No Limitations - History of Present Illness Initial comments: Pt reports his testicles have been hurting for the past two weeks. No trauma. Denies abdominal pain, dysuria, flank pain, penile discharge, fevers, nausea, vomiting. MD Complaint: testicle pain -: Gradual, week(s) (2) Location: right testicle, left testicle Radiation: none Severity: moderate Severity scale (0 -10): 5 Quality: aching Consistency: constant Improves with: none Worsens with: none denies other symptoms. denies: discharge, mass, urinary retention, blood in urine, dysuria, fever, nausea/vomiting, incontinence - Related Data Previous Rx's Medication Instructions Recorded Last Taken Type ALBUTEROL Inhaler [ProAir HFA 1 puff IH Q4H PRN #1 inha 12/26/16 Unknown Rx Inhaler] Fluticasone [Flonase] 1 spray NS QDAY #1 bottle 12/26/16 Unknown Rx Loratadine/Pseudoephedrine 1 tab PO Q12H #30 tablet 12/26/16 Unknown Rx [Claritin-D 12HR] Cephalexin [Keflex] 500 mg PO Q6HR #40 capsule 05/08/17 Unknown Rx Ibuprofen [Motrin] 600 mg PO Q8H PRN #15 tablet 05/08/17 Unknown Rx Sulfamethoxazole/Trimethoprim 1 each PO BID #20 tablet 05/08/17 Unknown Rx [Bactrim DS TAB] hydrOXYzine PAMOATE [Vistaril] 25 mg PO Q6HR PRN #12 capsule 05/08/17 Unknown Rx traMADol [Ultram] 50 mg PO Q6HR PRN #12 tablet 05/08/17 Unknown Rx Amoxicillin 1,000 mg PO BID #40 capsule 06/16/17 Unknown Rx Ibuprofen [Motrin 600 MG tab] 600 mg PO Q8H PRN #30 tablet 07/02/17 Unknown Rx predniSONE [Deltasone] 20 mg PO BID #10 tab 07/02/[address] [Camilo De Leon] 75 mg PO BID PRN #20 tablet 09/02/17 Unknown Rx Allergies Allergy/AdvReac Type Severity Reaction Status Date / Time No Known Allergies Allergy Verified 05/08/17 15:01 ED Review of Systems ROS: Stated complaint: TESTICAL PAIN Other details as noted in HPI Comment: All other systems reviewed and negative Constitutional: denies: chills, fever Eyes: denies: eye pain, eye discharge, vision change ENT: denies: ear pain, throat pain Respiratory: denies: cough, shortness of breath, wheezing Cardiovascular: denies: chest pain, palpitations Endocrine: no symptoms reported Gastrointestinal: denies: abdominal pain, nausea, diarrhea Genitourinary: as per HPI, testicular pain. denies: urgency, dysuria Musculoskeletal: denies: back pain, joint swelling, arthralgia Skin: denies: rash, lesions Neurological: denies: headache, weakness, paresthesias Psychiatric: denies: anxiety, depression Hematological/Lymphatic: denies: easy bleeding, easy bruising ED Past Medical Hx - Past Medical History Previous Medical History?: No Additional medical history: high cholesterol - Social History Smoking Status: Never Smoker - Medications Home Medications: Home Medications Medication Instructions Recorded Confirmed Last Taken Type ALBUTEROL Inhaler [ProAir HFA 1 puff IH Q4H PRN #1 inha 12/26/16 Unknown Rx Inhaler] Fluticasone [Flonase] 1 spray NS QDAY #1 bottle 12/26/16 Unknown Rx Loratadine/Pseudoephedrine 1 tab PO Q12H #30 tablet 12/26/16 Unknown Rx [Claritin-D 12HR] Cephalexin [Keflex] 500 mg PO Q6HR #40 capsule 05/08/17 Unknown Rx Ibuprofen [Motrin] 600 mg PO Q8H PRN #15 tablet 05/08/17 Unknown Rx Sulfamethoxazole/Trimethoprim 1 each PO BID #20 tablet 05/08/17 Unknown Rx [Bactrim DS TAB] hydrOXYzine PAMOATE [Vistaril] 25 mg PO Q6HR PRN #12 capsule 05/08/17 Unknown Rx traMADol [Ultram] 50 mg PO Q6HR PRN #12 tablet 05/08/17 Unknown Rx Amoxicillin 1,000 mg PO BID #40 capsule 06/16/17 Unknown Rx Ibuprofen [Motrin 600 MG tab] 600 mg PO Q8H PRN #30 tablet 07/02/17 Unknown Rx predniSONE [Deltasone] 20 mg PO BID #10 tab 07/02/17 Unknown Rx Diclofenac [Camilo De Leon] 75 mg PO BID PRN #20 tablet 09/02/17 Unknown Rx ED Physical Exam - General Limitations: No Limitations General appearance: alert, in no apparent distress - Head Head exam: Present: atraumatic, normocephalic - Eye Eye exam: Present: normal appearance - ENT ENT exam: Present: mucous membranes moist - Neck Neck exam: Present: normal inspection - Respiratory Respiratory exam: Present: normal lung sounds bilaterally. Absent: respiratory distress - Cardiovascular Cardiovascular Exam: Present: regular rate, normal rhythm. Absent: systolic murmur, diastolic murmur, rubs, gallop - GI/Abdominal GI/Abdominal exam: Present: soft, normal bowel sounds. Absent: tenderness, guarding, rebound, rigid - Rectal Rectal exam: Present: deferred - exam: Present: normal inspection, testicular tenderness. Absent: urethral discharge, scrotal swelling, circumcision External exam: Present: normal external exam. Absent: swelling, lesions - Extremities Exam Extremities exam: Present: normal inspection - Back Exam Back exam: Present: normal inspection. Absent: CVA tenderness (R), CVA tenderness (L) - Neurological Exam Neurological exam: Present: alert, oriented X3 - Psychiatric Psychiatric exam: Present: normal affect, normal mood - Skin Skin exam: Present: warm, dry, intact, normal color. Absent: rash ED Course Vital Signs 09/02/17 12:14 Temperature 98.4 F Pulse Rate 80 Respiratory 16 Rate Blood Pressure 120/86 O2 Sat by Pulse 97 Oximetry - Reevaluation(s) Reevaluation #1: 09/02/17 18:02 Pt is in NAD and stable for d/c. ED Medical Decision Making - Lab Data UA negative - Radiology Data Radiology results: report reviewed naf - Medical Decision Making Pt has essentially normal exam, negative UA and ultrasound. Discussed need to follow up with urology. - Differential Diagnosis hernia, hydrocele, unlikely torsion Critical care attestation.: If time is entered above; I have spent that time in minutes in the direct care of this critically ill patient, excluding procedure time. ED Disposition Disposition: - TO HOME OR SELFCARE Is pt being admited?: No Condition: Good Instructions: Testicle Pain (ED) Prescriptions: Nora De Leon [Camilo De Leon] 75 mg PO BID PRN #20 tablet PRN Reason: Pain Referrals: PRIMARY CARE, [Primary Care Provider] - 3-5 Days SERGE PENN MD [Referring] - 3-5 Days Time of Disposition: 18:04 <HOA MOROCHO - Last Filed: 09/02/17 18:26> ED Medical Decision Making - Radiology Data Radiology results: report reviewed interpreted by me: No acute process on testicular Doppler
--- NOTE | 2017-09-02 16:37 | Ultrasound Report ---
FINAL REPORT PROCEDURE: US TESTICULAR DOPPLER COMP TECHNIQUE: Real-time rubin-scale and color flow Doppler sonography in multiple planes of the scrotum, testicles, and epididymes was performed. Velocity spectral waveform analysis Doppler imaging of the arterial inflow and venous outflow of the testicles was performed with image documentation. CPT 61478 and 90365 HISTORY: testicular pain COMPARISON: No prior studies are available for comparison. FINDINGS: RIGHT TESTICLE: Size: 3.5 x 2.4 x 3.2 cm . Appearance: Normal size and echotexture . Arterial blood flow: Normal spectral waveforms, flow velocities and color flow images.. Venous blood flow: Normal spectral waveforms and color flow images. Right epididymis: Normal size and echotexture . Hydrocele: None . LEFT TESTICLE Size: 3.9 x 1.8 x 2.8 cm . Appearance: Normal size and echotexture . Arterial blood flow: Normal spectral waveforms, flow velocities and color flow images.. Venous blood flow: Normal spectral waveforms and color flow images. Left epididymis: Normal size and echotexture . Hydrocele: None . IMPRESSION: No acute abnormality is identified
[2017-09-02 17:38] LABS: Mucus,Urine FEW /HPF
[2017-09-02 17:44] LABS: Bilirubin,Urine NEG (Negative); Blood,Urine NEG (Negative); Ketones,Urine NEG (Negative); Leukocyte Esterase,Urine NEG (Negative); Nitrite,Urine NEG (Negative); Protein,Urine <15 mg/dL mg/dL (Negative); Urobilinogen,Urine < 2.0 mg/dL (<2.0)
== END 2017-09-02 18:24 | disposition home or self-care (01) ==
LOC: ED 11:33
DX: N50.812 Left testicular pain (principal); N50.811 Right testicular pain; E78.5 Hyperlipidemia, unspecified
CPT/HCPCS: 81001; 93975